=== PATIENT | male | born 1990 | race Caucasian/White ===

== ENCOUNTER 2017-05-16 18:34 | Emergency (ER) | payer SELFPAY ==
[~2017-05-16] VITALS: Ht 180.3 cm; Wt 74.8 kg
[2017-05-16 18:37] VITALS: BP 134/79
--- NOTE | 2017-05-16 18:58 | NUR ---
ULTRASOUND AT BEDSIDE
== END 2017-05-16 19:44 | disposition home or self-care (01) ==
LOC: ER 18:36
DX: N50.811 Right testicular pain (principal)
CPT/HCPCS: 76870-TC; A4606; Z7610